=== PATIENT | female | born 1960 | race Caucasian/White ===

== ENCOUNTER 2020-11-17 13:24 | Outpatient (CLI) | payer BC | END 2020-11-17 13:25 | disposition home or self-care (01) | LOC: BICRAD 13:24 | PROVIDERS: ATTEND Student in an Organized Health Care Education/Training Program | DX: M17.11 Unilateral primary osteoarthritis, right knee (principal); M25.461 Effusion, right knee ==

== ENCOUNTER 2020-12-21 10:45 | Inpatient (IN) | payer BC ==
[2020-12-21 22:12] LABS: SARS-CoV-2 PCR by NAA Not Detected (NotDetected)
[2020-12-22 14:42] VITALS: BMI 30.6
[2020-12-26] MEDS ORDERED: Fentanyl 100 MCG/2 ML VIAL ONE ×7 (06:14→12:32)
[2020-12-26] MEDS ORDERED: Midazolam HCl 2 mg/2 ml Vial ONE ×3 (06:14→06:37)
[2020-12-26] MEDS ORDERED: Lidocaine 1% w/Epinephrine 1:100K 20 ML VIAL ONE (06:29)
[2020-12-26] MEDS ORDERED: Bupivacaine 0.25% HCL 30 ML VIAL ONE (06:29)
[2020-12-26] MEDS ORDERED: Sodium Chloride 0.9% 100 ML ONE (06:47)
[2020-12-26] MEDS ORDERED: Tranexamic Acid 1,000 MG/10 ML VIAL ONE (06:47)
[2020-12-26] MEDS ORDERED: Vancomycin HCl 1.5 GM in Sodium Chloride 0.9% 250 ML 300 ML IVPB SCH ×2 (07:00→20:00)
[2020-12-26] MEDS ORDERED: PROPOFOL 200 MG/20 ML VIAL ONE (07:35)
[2020-12-26] MEDS ORDERED: Ondansetron PF 4 MG/2 ML Vial ONE (07:35)
[2020-12-26] MEDS ORDERED: Ropivacaine 2% HCl/PF (20 MG/10 ML VIAL) ONE (07:35)
[2020-12-26] MEDS ORDERED: Bupivacaine HCl 0.5%/Epinephrine 1:200,000/PF 30 ml Vial ONE (07:35)
[2020-12-26] MEDS ORDERED: Lidocaine 1% PF 5 ML VIAL ONE (07:35)
[2020-12-26] MEDS ORDERED: Dexamethasone 20 MG/5 ML VIAL ONE (07:35)
[2020-12-26] MEDS ORDERED: Fentanyl 100 MCG/2 ML VIAL IV PRN (07:56)
[2020-12-26] MEDS ORDERED: traMADol HCl 50 MG TAB PO PRN ×3 (08:00→09:45)
[2020-12-26] MEDS ORDERED: Zolpidem Tartrate 5 MG TAB PO PRN ×2 (08:00→09:45)
[2020-12-26] MEDS ORDERED: Ropivacaine HCl/PF 250 ML in Premix Bag 1 BAG NERVE BLCK SCH (08:00)
[2020-12-26] MEDS ORDERED: HYDROcodone/Acetaminophen 10/325 mg Tablet PO PRN ×3 (08:00→09:45)
[2020-12-26] MEDS ORDERED: Ondansetron PF 4 MG/2 ML Vial IVP PRN ×2 (08:00→09:45)
[2020-12-26] MEDS ORDERED: Promethazine HCl 25 MG/ML VIAL IM PRN ×3 (08:00→09:45)
[2020-12-26] MEDS ORDERED: Ondansetron HCl/PF 4 MG/2 ML Vial IVP PRN (09:13)
[2020-12-26] MEDS ORDERED: Promethazine HCl 25 MG/ML VIAL SLOW IVP PRN (09:13)
[2020-12-26] MEDS ORDERED: HYDROmorphone 2 MG/ML VIAL SLOW IVP PRN (09:13)
[2020-12-26] MEDS ORDERED: Acetaminophen 325 MG TAB PO PRN (09:45)
[2020-12-26] MEDS ORDERED: diphenhydrAMINE 25 MG CAP PO PRN (09:45)
[2020-12-26] MEDS ORDERED: Fentanyl 100 MCG/2 ML VIAL SLOW IVP PRN ×2 (09:45)
[2020-12-26] MEDS ORDERED: Ketorolac Tromethamine 30 MG/ML VIAL IVP PRN (09:45)
[2020-12-26] MEDS ORDERED: HYDROmorphone 2 MG/ML VIAL ONE (10:06)
[2020-12-26] MEDS ORDERED: Aspirin 81 mg Enteric Coated Tablet PO SCH (10:15)
[2020-12-26] MEDS ORDERED: Bupivacaine 0.5% 10 ML VIAL ONE (10:26)
[2020-12-26] MEDS ORDERED: Ketorolac Tromethamine 30 MG/ML VIAL ONE (10:29)
[2020-12-26] MEDS ORDERED: HYDROcodone/Acetaminophen 10/325 mg Tablet ONE ×2 (14:08→14:10)
[2020-12-26] MEDS: HYDROcodone/Acetaminophen 10/325 mg Tablet PO PRN ×3 (14:11→21:56)
[2020-12-26] MEDS: Sodium Chloride 0.9% 1,000 ML IV SCH ×2 (15:57→22:02)
[2020-12-26] MEDS: Ketorolac Tromethamine 30 MG/ML VIAL IVP SCH ×3 (15:58→23:36)
[2020-12-26] MEDS: CEFAZOLIN 2 GM in Premix Bag 1 BAG IVPB SCH ×2 (16:15→23:36)
[2020-12-26] MEDS ORDERED: Dextrose 50% Abboject 50 ML SYRINGE ONE (16:32)
[2020-12-26] MEDS ORDERED: Sodium Chloride 0.9% 10 ML ONE (16:32)
[2020-12-26] MEDS: Aspirin 81 mg Enteric Coated Tablet PO SCH (19:56)
[2020-12-26] MEDS ORDERED: Vancomycin 1.5 GRAM/300 ML BAG 1.5 GM in Premix Bag 1 BAG IVPB SCH (20:00)
[2020-12-27] MEDS: HYDROcodone/Acetaminophen 10/325 mg Tablet PO PRN ×4 (05:37→21:29)
[2020-12-27] MEDS: Ketorolac Tromethamine 30 MG/ML VIAL IVP SCH ×4 (05:39→23:50)
[2020-12-27 05:59] LABS: Hemoglobin 10.7 g/dL (12.0-16.0); Mean Corpuscular HGB CONC 32.9 g/dL (32.0-36.0); Mean Corpuscular Hemoglobin 29.6 pg (27.0-31.0); Mean Corpuscular Volume 90.1 fL (78.0-98.0); Mean Platelet Volume 6.7 fL (7.4-10.4); Platelet Count 318 thou/uL (130-400); Red Blood Cell (RBC) Count 3.61 mill/uL (4.20-5.40); White Blood Cell (WBC) Count 12.2 thou/uL (4.8-10.8)
[2020-12-27] MEDS: Sodium Chloride 0.9% 1,000 ML IV SCH ×2 (06:29→14:25)
[2020-12-27] MEDS: Senokot S 8.6-50 MG TAB PO SCH ×2 (09:02→19:41)
[2020-12-27] MEDS: Multivitamin W/ Minerals 1 TAB PO SCH (09:02)
[2020-12-27] MEDS: Ferrous Gluconate 324 MG TAB PO SCH ×2 (09:02→16:57)
[2020-12-27] MEDS: Aspirin 81 mg Enteric Coated Tablet PO SCH ×2 (09:02→19:41)
[2020-12-28] MEDS: Sodium Chloride 0.9% 1,000 ML IV SCH ×2 (02:18→11:44)
[2020-12-28] MEDS: HYDROcodone/Acetaminophen 10/325 mg Tablet PO PRN ×4 (02:24→14:02)
[2020-12-28] MEDS: Ketorolac Tromethamine 30 MG/ML VIAL IVP SCH (05:30)
[2020-12-28 06:01] LABS: Mean Corpuscular HGB CONC 33.7 g/dL (32.0-36.0); Mean Corpuscular Hemoglobin 30.5 pg (27.0-31.0); Mean Corpuscular Volume 90.6 fL (78.0-98.0); Mean Platelet Volume 6.8 fL (7.4-10.4); Platelet Count 281 thou/uL (130-400); RBC Distribution Width 11.2 % (11.5-14.5); Red Blood Cell (RBC) Count 3.27 mill/uL (4.20-5.40); White Blood Cell (WBC) Count 9.3 thou/uL (4.8-10.8)
[2020-12-28 08:35] VITALS: BP 138/78; TEMP 98.2
[2020-12-28] MEDS: Senokot S 8.6-50 MG TAB PO SCH (10:20)
[2020-12-28] MEDS: Multivitamin W/ Minerals 1 TAB PO SCH (10:20)
[2020-12-28] MEDS: Aspirin 81 mg Enteric Coated Tablet PO SCH (10:20)
[2020-12-28] MEDS: Ferrous Gluconate 324 MG TAB PO SCH (10:20)
== END 2020-12-28 14:30 | disposition home or self-care (01) | DRG 470 ==
LOC: SURG A 12-26 05:36 → EDSTATUS 12-26 10:45 → SURG A 12-26 15:48
PROVIDERS: ADMIT Orthopaedic Surgery; ATTEND Orthopaedic Surgery
PROC: 0SRC0J9 Replacement of Right Knee Joint with Synthetic Substitute, Cemented, Open Approach (ICD-10-PCS; principal; 2020-12-26)
DX: M17.11 Unilateral primary osteoarthritis, right knee (principal); D62 Acute posthemorrhagic anemia; Z20.822 Contact with and (suspected) exposure to COVID-19; Z79.82 Long term (current) use of aspirin
CPT/HCPCS: 36415; 85027; 86850; 86900; 86901; 87635; C1713; C1776; J0690; J1100; J1170; J1885; J2250; J2405; J2704; J2795; J3010; J3370; J3490; J7050; S0020; U0003; U0005

== ENCOUNTER 2020-12-21 10:56 | Outpatient (CLI) | payer BC ==
[2020-12-21 12:08] LABS: #Eosinphils 0.1 10x3/uL (0.0-0.5); #Monocytes 0.4 10x3/uL (0.0-1.1); #Neutrophils 4.1 10x3/uL (1.5-8.4); %Basophils 0.3 % (0.0-2.0); %Lymphocytes 26.6 % (18.0-47.0); %Monocytes 6.6 % (0.0-10.0); %Neutrophils 64.2 % (40.0-75.0); Hemoglobin 13.9 g/dL (12.0-15.5); Mean Corpuscular Hemoglobin 29.4 pg (27.0-33.0); Mean Platelet Volume 9.1 fl (7.4-10.4); Platelet Count 366 10x3/uL (150-450); RBC Distribution Width 11.8 % (11.5-14.5); Red Blood Cell (RBC) Count 4.73 10x6/uL (3.90-5.03); White Blood Cell (WBC) Count 6.4 10x3/uL (3.5-10.5)
[2020-12-21 12:19] LABS: Prothrombin Time 10.9 sec (9.5-12.1)
[2020-12-21 12:43] LABS: Anion Gap 15 mmol/L (10-20); BUN (Urea Nitrogen) 13 mg/dL (9.8-20.1); Calc. Creatinine Clearance 0 mL/min (70-130); Calcium 9.3 mg/dL (7.8-10.44); Carbon Dioxide 25 mmol/L (22-29); Chloride 105 mmol/L (98-107); Glucose 91 mg/dL (70-105); Potassium 4.1 mmol/L (3.5-5.1); Sodium 141 mmol/L (136-145)
== END 2020-12-21 10:57 | disposition home or self-care (01) ==
LOC: LABBT 10:56
PROVIDERS: ATTEND Orthopaedic Surgery
DX: Z01.818 Encounter for other preprocedural examination (principal); M17.11 Unilateral primary osteoarthritis, right knee; Z20.822 Contact with and (suspected) exposure to COVID-19
CPT/HCPCS: 80048; 85025; 85610; 86850; 86900; 86901; 87081; 87635; 93005; 93010; U0003; U0005

== ENCOUNTER 2021-05-08 12:40 | Outpatient (CLI) | payer BC | END 2021-05-08 12:41 | disposition home or self-care (01) | LOC: BICMAMMO 12:40 | PROVIDERS: ATTEND Student in an Organized Health Care Education/Training Program | DX: Z12.31 Encounter for screening mammogram for malignant neoplasm of breast (principal); Z13.820 Encounter for screening for osteoporosis; M85.89 Other specified disorders of bone density and structure, multiple sites; Z78.0 Asymptomatic menopausal state | CPT/HCPCS: 77063; 77067; 77080 ==

== ENCOUNTER 2022-07-01 12:27 | Outpatient (CLI) | payer BC | END 2022-07-01 12:28 | disposition home or self-care (01) | LOC: BICMAMMO 12:27 | PROVIDERS: ATTEND Student in an Organized Health Care Education/Training Program | DX: Z12.31 Encounter for screening mammogram for malignant neoplasm of breast (principal) | CPT/HCPCS: 77063; 77067 ==

== ENCOUNTER 2023-07-17 14:01 | Outpatient (CLI) | payer BC | END 2023-07-17 14:02 | disposition home or self-care (01) | LOC: BICMAMMO 14:01 | PROVIDERS: ATTEND Student in an Organized Health Care Education/Training Program | DX: Z12.31 Encounter for screening mammogram for malignant neoplasm of breast (principal) | CPT/HCPCS: 77063; 77067 ==

== ENCOUNTER 2025-07-22 13:41 | Outpatient (CLI) | payer BC | END 2025-07-22 13:42 | disposition home or self-care (01) | LOC: SCSBT 13:41 | PROVIDERS: ATTEND Family Medicine | DX: M85.80 Other specified disorders of bone density and structure, unspecified site (principal); M81.0 Age-related osteoporosis without current pathological fracture | CPT/HCPCS: 77080 ==